=== PATIENT | female | born 1965 | race Two or more races ===

== ENCOUNTER 2016-08-13 20:15 | Emergency (ER) | payer OTHER ==
--- NOTE | ~2016-08-13 | CR72 ---
[facility] A Service of [facility] & [facility] RADIOLOGY TEXT RESULTS PATIENT: ANNIE NGUYEN LOCATION: CFTX : 61 UNIT #: [id number] AGE: [address]: CHAKA PEREZ APRN SEX: F ORDER DR: [id number] [facility] [address] [place], [place] [address] [id number] MR#: [id number] Acc #: [id number] NAME: ANNIE NGUYEN : 1965 SEX: F STUDY DATE/TIME: 08/13/2016 20:19 UNIT: [facility] ROOM: STUDY DESCRIPTION: CR Chest Single View Portable Attending Physician: Chaka Perez Aprn Ordering Physician: Chaka Perez Aprn Primary Care Physician: No Primary Care Physician MEDICAL IMAGING REPORT This report is preliminary unless electronic signature is present EXAM AP chest radiograph, 08/13. COMPARISON 01/15/2014 HISTORY History supplied is cough, headache and back pain for 1 month. FINDINGS An AP view is obtained. The cardiac size appears normal. There are low volumes present. Lungs are clear. CONCLUSION Negative portable chest, no acute process identified. Dictated by... Samuel Albert M.D. THIS IS AN ELECTRONICALLY VERIFIED REPORT Samuel Albert M.D. at 08/14/2016 10:35 AM THU/gracy TD: 08/14/2016 05:29 JOB #: [id number] MEDICAL IMAGING REPORT Page 1 of 1 COPY
[2016-08-13 18:12] LABS: INFLUENZA A NEG (NEG)
[2016-08-13 18:13] LABS: INFLUENZA B NEG (NEG)
[2016-08-13 20:04] LABS: URINE SOURCE CLEAN CATCH
[2016-08-13 20:31] LABS: URBCS1 AUWI 0-2 /[HPF] (0-2); URINE APPEARANCE CLEAR; URINE BACTERIA AUWI NEG (NEGATIVE); URINE BILIRUBIN NEG (NEG); URINE BLOOD NEG (NEG); URINE COLOR YELLOW; URINE GLUCOSE NEG (NEG); URINE KETONE NEG (NEG); URINE LEUKOCYTE ESTERASE TRACE (NEG); URINE NITRATE NEG (NEG); URINE PROTEIN NEG (NEG); URINE SPECIFIC GRAVITY 1.012 (1.003-1.035); URINE SQUAMOUS EPITHELIAL CELL NONE SEEN /[HPF]; URINE UROBILINOGEN 0.2 MG/DL (NEG); UWBCS1 AUWI 0-2 (0-5)
[2016-08-13 20:36] LABS: CULTURE INDICATED? NO
== END 2016-08-13 21:26 | disposition home or self-care (01) ==
LOC: CFTX 20:15
PROVIDERS: Nurse Practitioner Family
DX: J06.9 Acute upper respiratory infection, unspecified (principal)
CPT/HCPCS: 71010; 81003; 87651; 87804; 99283